=== PATIENT | female | born 1955 | race Caucasian/White ===

== ENCOUNTER 2020-04-17 11:06 | Inpatient (IN) | payer OTHER ==
[2020-04-17] MEDS ORDERED: Ketorolac 30 MG/ML SDV IVPUSH PRN (16:19)
[2020-04-17] MEDS ORDERED: Ondansetron 4 MG/2 ML SDV IV PRN (16:19)
[2020-04-17] MEDS ORDERED: Sodium Chloride 0.9% 50 ML IV SCH (16:30)
[2020-04-17] MEDS ORDERED: Diatrizoate Meglumine/Diatrizoate Sodium 37% 30 ML Bottle PO ONE (16:30)
[2020-04-17] MEDS ORDERED: Iopamidol 755 Mg/ML 100 ML Bottle IV ONE (16:30)
[2020-04-17] MEDS: Sodium Chloride 0.9% 1,000 ML IV SCH (17:02)
[2020-04-17] MEDS ORDERED: Promethazine 25 MG/ML SDV IM ONE (17:05)
--- NOTE | 2020-04-17 18:05 | CT ---
[id number] CT/CT Abdomen Pelvis W IV EXAM: CT Abdomen Pelvis W IV CLINICAL DATA: ABDOMINAL PAIN. COMPARISON STUDY: None. FINDINGS: Dependent atelectasis at the lung bases bilaterally. Moderate hiatal hernia. A few subcentimeter hypodensities scattered throughout the liver are nonspecific but likely represent cysts. The gallbladder is mildly distended. The spleen, pancreas, adrenal glands are unremarkable. Right renal cyst. The kidneys are otherwise unremarkable. No hydronephrosis or hydroureter. There are multiple fluid distended loops of small bowel with relative to the decompression distally. There is a transition point within the right lower quadrant. There is a small amount of free fluid within the abdomen and pelvis. No free air. No fluid collection. Colonic diverticulosis. No lymphadenopathy or pneumoperitoneum. Scattered changes of spondylosis the spine. No fracture or osseous lesion. IMPRESSION: 1. Multiple fluid distended loops of small bowel with transition point in the right hemipelvis consistent with small bowel obstruction. [id number] amount of free fluid within the abdomen and pelvis. Mariano Berman DO 04/17/20 0518 Thank you for allowing us to participate in the care of your patient.
[2020-04-17] MEDS: Morphine 2 MG/ML SYRINGE IVPUSH PRN ×3 (18:22→22:50)
[2020-04-17] MEDS ORDERED: CETIRIZINE HCL 10 MG PO PRN (18:34)
[2020-04-17] MEDS: LORazepam 2 MG/ML SDV IVPUSH PRN (19:46)
[2020-04-17] MEDS: Sodium Chloride 0.9% 10 ML Syringe FLUSH PRN ×2 (19:49→22:52)
[2020-04-17] MEDS ORDERED: CLONAZEPAM 1 MG PO SCH (21:00)
[2020-04-18] MEDS: Sodium Chloride 0.9% 1,000 ML IV SCH ×3 (01:38→18:34)
[2020-04-18] MEDS: Morphine 2 MG/ML SYRINGE IVPUSH PRN ×6 (04:33→22:16)
[2020-04-18] MEDS: Sodium Chloride 0.9% 10 ML Syringe FLUSH PRN ×2 (04:35→13:58)
[2020-04-18 07:36] LABS: ANION GAP 12.7 mmol/L (5-15)
[2020-04-18] MEDS ORDERED: HCTZ PO SCH (09:00)
[2020-04-18] MEDS ORDERED: Non-Formulary Medication 1 Each (Bupropion Hcl [Wellbutrin Xl] 300 MG) PO SCH (09:00)
[2020-04-18] MEDS ORDERED: TRIAMTERENE PO SCH (09:00)
[2020-04-18] MEDS ORDERED: Non-Formulary Medication 1 Each (Paroxetine Hcl [Paxil] 40 MG) PO SCH (09:00)
[2020-04-18] MEDS ORDERED: Non-Formulary Medication 1 Each (Omeprazole [Omeprazole] 20 MG) PO SCH (09:00)
[2020-04-18] MEDS ORDERED: ENALAPRIL MALEATE 20 MG PO SCH (09:00)
--- NOTE | 2020-04-18 10:37 | PCM.PN ---
- General Info Date of Service: 04/18/20 Subjective Update: Pain is improving. Most of her pain is in her back that is chronic in nature. The abdominal pain less than on admission. Denies nausea/voming. Has not yet been passing flatus and has not had a bowel movement. Functional Status: Reports: Pain Controlled, Urinating - Review of Systems General: Denies: Fever, Weakness, Chills HEENT: Reports: Sore Throat (from NGT). Denies: Headaches, Visual Changes Pulmonary: Denies: Shortness of Breath, Cough, Wheezing Cardiovascular: Denies: Chest Pain, Palpitations, Edema Gastrointestinal: Reports: Abdominal Pain (improved, generalized), Other (has not yet had bowel movement). Denies: Flatus, Nausea, Vomiting Genitourinary: Denies: Dysuria, Frequency, Urgency, Hematuria Musculoskeletal: Reports: Back Pain Skin: Denies: Rash Neurological: Denies: Confusion, Headache, Weakness Psychiatric: Reports: Anxiety - Patient Data Vitals - Most Recent: Last Vital Signs Temp 37.1 C 04/18/20 06:38 Pulse 102 H 04/18/20 06:38 Resp 20 04/18/20 06:38 BP 143/82 H 04/18/20 06:38 Pulse Ox 96 04/18/20 06:38 Weight - Most Recent: 50.984 kg I&O - Last 24 Hours: Intake & Output 04/17/20 04/18/20 04/18/20 22:59 06:59 14:59 Intake Total 1555 Output Total 125 Balance 1430 Lab Results Last 24 Hours: Laboratory Results - last 24 hr 04/17/20 04/17/20 04/17/20 Range/Units 16:20 17:10 17:10 WBC (5.00-10.00) 10^3/uL RBC (3.80-5.50) 10^6/uL Hgb (12.0-16.0) g/dL Hct (37.0-47.0) % MCV (82.0-92.0) fL MCH (27.0-31.0) pg MCHC (32.0-36.0) g/dL RDW (11.5-14.5) % Plt Count (150-400) 10^3/uL MPV (7.4-10.4) fL Immature Gran % (Auto) (0.0-5.0) % Neut % (Auto) (50.0-70.0) % Lymph % (Auto) (20.0-40.0) % [place] % (Auto) (2.0-8.0) % Eos % (Auto) (1.0-3.0) % Baso % (Auto) (0.0-1.0) % Neut # (Auto) (2.50-7.00) 10^3/uL Lymph # (Auto) (1.00-4.00) 10^3/uL [place] # (Auto) (0.10-0.80) 10^3/uL Eos # (Auto) (0.10-0.30) 10^3/uL Baso # (Auto) (0.00-0.10) 10^3/uL Immature Gran # (Auto) (0.00-0.50) 10^3/uL Sodium (136-145) mmol/L Potassium (3.3-5.3) mmol/L Chloride (98-115) mmol/L Carbon Dioxide (21.0-32.0) mmol/L Anion Gap (5-15) mmol/L BUN (6-25) mg/dL Creatinine (0.51-1.17) mg/dL Est Cr Clr Drug Dosing mL/min Estimated GFR (MDRD) mL/min Glucose (75 - 99) mg/dL POC Glucose 115 H (74-106) mg/dl Lactic Acid 1.0 (0.4-2.0) mmol/L Calcium (8.7-10.3) mg/dL C-Reactive Protein 1.8 H (0.0-0.9) mg/dL Specimen Type Urine Color (YELLOW) Urine Appearance (CLEAR) Urine pH (5.0-9.0) Ur Specific [place] (1.005-1.030) Urine Protein (NEGATIVE) mg/dL Urine Glucose (UA) (NEGATIVE) mg/dL Urine Ketones (NEGATIVE) mg/dL Urine Occult Blood (NEGATIVE) Urine Nitrite (NEGATIVE) Urine Bilirubin (NEGATIVE) Urine Urobilinogen (0.2-1.0) E.U./dL Ur Leukocyte Esterase (NEGATIVE) U Hyaline Cast (Auto) Urine RBC (0-5) /HPF Urine WBC (0-5) /HPF Ur Epithelial Cells /LPF Other Crystals /HPF Urine Bacteria (NONE TO FEW) /HPF Urine Mucus (NEGATIVE) /LPF 04/17/20 04/18/20 04/18/20 Range/Units 17:40 07:07 07:07 WBC 4.43 L (5.00-10.00) 10^3/uL RBC 3.75 L (3.80-5.50) 10^6/uL Hgb 11.8 L (12.0-16.0) g/dL Hct 35.5 L (37.0-47.0) % MCV 94.7 H (82.0-92.0) fL MCH 31.5 H (27.0-31.0) pg MCHC 33.2 (32.0-36.0) g/dL RDW 13.0 (11.5-14.5) % Plt Count 251 (150-400) 10^3/uL MPV 8.5 (7.4-10.4) fL Immature Gran % (Auto) 0.0 (0.0-5.0) % Neut % (Auto) 74.6 H (50.0-70.0) % Lymph % (Auto) 14.2 L (20.0-40.0) % [place] % (Auto) 10.2 H (2.0-8.0) % Eos % (Auto) 0.5 L (1.0-3.0) % Baso % (Auto) 0.5 (0.0-1.0) % Neut # (Auto) 3.31 (2.50-7.00) 10^3/uL Lymph # (Auto) 0.63 L (1.00-4.00) 10^3/uL [place] # (Auto) 0.45 (0.10-0.80) 10^3/uL Eos # (Auto) 0.02 L (0.10-0.30) 10^3/uL Baso # (Auto) 0.02 (0.00-0.10) 10^3/uL Immature Gran # (Auto) 0.00 (0.00-0.50) 10^3/uL Sodium 138 (136-145) mmol/L Potassium 3.5 (3.3-5.3) mmol/L Chloride 101 (98-115) mmol/L Carbon Dioxide 27.8 (21.0-32.0) mmol/L Anion Gap 12.7 (5-15) mmol/L BUN 29 H (6-25) mg/dL Creatinine 1.03 (0.51-1.17) mg/dL Est Cr Clr Drug Dosing 40.16 mL/min Estimated GFR (MDRD) 54 mL/min Glucose 102 H (75 - 99) mg/dL POC Glucose (74-106) mg/dl Lactic Acid (0.4-2.0) mmol/L Calcium 7.9 L (8.7-10.3) mg/dL C-Reactive Protein (0.0-0.9) mg/dL Specimen Type Urin[place]ad Urine Color Yellow (YELLOW) Urine Appearance Slightly cloudy H (CLEAR) Urine pH 5.5 (5.0-9.0) Ur Specific [place] >= 1.030 (1.005-1.030) Urine Protein 100 H (NEGATIVE) mg/dL Urine Glucose (UA) Negative (NEGATIVE) mg/dL Urine Ketones 15 H (NEGATIVE) mg/dL Urine Occult Blood Negative (NEGATIVE) Urine Nitrite Negative (NEGATIVE) Urine Bilirubin Moderate H (NEGATIVE) Urine Urobilinogen 0.2 (0.2-1.0) E.U./dL Ur Leukocyte Esterase Trace H (NEGATIVE) U Hyaline Cast (Auto) Moderate Urine RBC 0-5 (0-5) /HPF Urine WBC 30-40 H (0-5) /HPF Ur Epithelial Cells Moderate H /LPF Other Crystals Moderate /HPF Urine Bacteria Moderate H (NONE TO FEW) /HPF Urine Mucus Moderate H (NEGATIVE) /LPF Med Orders - Current: Current Medications Sodium Chloride (Normal Saline) 1,000 mls @ 125 mls/hr IV ASDIRECTED [facility] Last Admin: 04/18/20 09:50 Dose: 125 mls/hr Documented by: Lorazepam (Ativan) 0.5 mg IVPUSH Q4H PRN PRN Reason: Anxiety Last Admin: 04/17/20 19:46 Dose: 0.5 mg Documented by: Morphine Sulfate (Morphine) 2 mg IVPUSH Q2H PRN PRN Reason: Pain (moderate 4-6) Last Admin: 04/18/20 07:19 Dose: 2 mg Documented by: Ondansetron HCl (Zofran) 4 mg IV Q4H PRN PRN Reason: Nausea/Vomiting Last Admin: 04/17/20 18:15 Dose: 4 mg Documented by: Sodium Chloride (Saline Flush) 10 ml FLUSH Q8HR PRN PRN Reason: keep vein open Last Admin: 04/18/20 04:35 Dose: 10 ml Documented by: Discontinued Medications Diatrizoate Meglum/Diatrizoate Sod (Gastrografin 37%) 30 ml PO ONETIME ONE Stop: 04/17/20 16:31 Last Admin: 04/17/20 17:47 Dose: 30 ml Documented by: Sodium Chloride (Normal Saline) 50 mls @ 200 mls/min IV ASDIRECTED [facility] Last Admin: 04/17/20 17:47 Dose: 200 mls/min Documented by: Iopamidol (Isovue-370 (76%)) 100 ml IV ONETIME ONE Stop: 04/17/20 16:31 Last Admin: 04/17/20 17:47 Dose: 75 ml Documented by: Ketorolac Tromethamine (Toradol) 30 mg IVPUSH Q8H PRN PRN Reason: Pain (moderate 4-6) Non-Formulary Medication (Bupropion Hcl [Wellbutrin Xl]) 300 mg PO DAILY JACQU[facility]INE Non-Formulary Medication (Cetirizine Hcl [Cetirizine Hcl]) 10 mg PO DAILY PRN PRN Reason: Allergies Non-Formulary Medication (Clonazepam [Clonazepam]) 1 mg PO TID JACQUELINE Non-Formulary Medication (Enalapril Maleate [Vasotec]) 20 mg PO DAILY JACQUELINE Non-Formulary Medication (Hctz/Triamterene [Dyazide 25-37.5 Mg]) 1 cap PO DAILY JACQUELINE Non-Formulary Medication (Omeprazole [Omeprazole]) 20 mg PO DAILY JACQUELINE Non-Formulary Medication (Paroxetine Hcl [Paxil]) 40 mg PO DAILY [facility]AC[facility]INE Promethazine HCl (Phenergan) 25 mg IM Q6H ONE Stop: 04/17/20 17:06 Last Admin: 04/17/20 17:10 Dose: 25 mg Documented by: - Exam Physical Findings Comments:: GENERAL: Well-appearing adult in no acute distress with NGT in place. 200 total output noted in canister HEENT: Normocephalic, atraumatic. Conjunctiva clear. Nares patent without discharge. Mucous membranes moist, posterior pharynx unremarkable. NECK: Supple, no masses. CV: Regular rate and rhythm, no murmurs, rubs, or gallops. 2+ radial pulses. PULMONARY: Normal effort, clear to auscultation bilaterally, no wheezes, rales, or rhonchi. ABDOMEN: Positive bowel sounds, soft, mild tenderness generalized on palpation, nondistended. EXTREMITIES: No edema, cyanosis, or clubbing. MUSCULOSKELETAL: Moves all extremities well. NEUROLOGICAL: No obvious deficits. DERMATOLOGIC: No rashes or suspicious lesions in exposed areas. PSYCHIATRIC: Alert, interactive, appropriate affect. Sepsis Event Note - Evaluation Sepsis Screening Result: No Definite Risk - Focused Exam Vital Signs: Vital Signs Temp Pulse Resp BP Pulse Ox 04/18/20 06:38 37.1 C 102 H 20 143/82 H 96 04/18/20 03:00 36.2 C 114 H 20 139/82 95 04/17/20 22:52 36.3 C 115 H 20 152/85 H 95 Date Exam was Performed: 04/18/20 Time Exam was Performed: 11:12 - Problem List Review Problem List Initiated/Reviewed/Updated: Yes - My Orders Last 24 Hours: My Active Orders 04/17/20 15:50 Patient Status [ADT] Routine 04/17/20 16:19 Oxygen Therapy [RC] .PRN Up With Assistance [RC] VTE/DVT Education [RC] DAILY Ondansetron [Zofran] 4 mg IV Q4H PRN Sodium Chloride 0.9% [Saline Flush] 10 ml FLUSH Q8HR PRN Peripheral IV Insertion Adult [OM.PC] Routine Resuscitation Status Routine 04/17/20 16:23 Intake and Output [RC] 07,19 04/17/20 16:25 Peripheral IV Care [RC] 09,04/17/20 16:30 Sodium Chloride 0.9% [Normal Saline] 1,000 ml IV ASDIRECTED 04/17/20 16:54 Morphine 2 mg IVPUSH Q2H PRN 04/17/20 Dinner Nothing per Oral Now Diet [DIET] 04/19/20 05:11 BMP [BASIC METABOLIC PANEL,BMP] [CHEM] AM CBC WITH AUTO DIFF [HEME] AM - Assessment Assessment:: HPI summary: 64 year old female presented to [facility] with abdominal pain/nausea/vomting for two days prior to presentation. She was brushing teeth and stomach started hurting. She felt like huge rock going through. She felt like it was swollen and gassy and she took a gas x without relief. She is nauseated, vomiting and has abdominal pain and swelling. She took aspirin and pepto bismol. She was able to keep water down for a short time. She has not been able to eat or drink anything it is coming back up. Hx constipation. S ometimes diarrhea and this is chronic. Last BM two days prior to presentation and it was small and soft/formed. No blood or melana. Vomit is watery with white in it. She was admitted to [facility] observation status with acute abdominal pain, leukocytosis, decreased kidney function, dehydration, nausea/vomiting. Prehospital findings: -Labs: WBC 11.3, Neut 9.9, lymphocytes 0.7, lipase unremarkable, glucose 138, BUN 25, creatinine 1.26, GFR 43, electrolytes stable other than mildly decreased chloride 94, calcium 9.8 -NS 1000mL bolus given with ondansetron 4mg and ketorolac 30mg with some improvement in symptoms Hospital course: 04/17/2020: CT scan completed showing "multiple fluid distended loops of small bowel with transition point in the right hemipelvis consistent with small bowel obstruction. Small to moderate amount of free fluid within the abdomen and pelvis". NPO status. NGT was placed. NS at 125mL/hr. Ondansetron PRN, Morphine PRN. 04/18/2020: No overnight concerns. Abdominal pain is improved. 200 seen in suction canister at bedside. Denies N/V. Has not been passing flatus and has not had bowel movement. Continues to have mild tachycardia in the 100-110s. Afebrile. BP mildly elevated at 143/82. Voiding. WBC 4.43, RBC 3.75, Hgb 11.8, HCT 35.5, Neut 3.31, lymph 0.63, electrolytes stable other than asymptomatic hypocalcemia 7.9; CRP 1.8, lactic 1. Urine sample was collected and appears to be contaminated specimen. Patient denies dysuria. Hospitalization problems and plan: # Small bowel obstruction - NPO - NGT to low intermittent suction - NS 125mL/hr - Ondansetron IV PRN nausea/vomiting - MS IV PRN pain - Monitor BS, passing gas or BM - Monitor I/O - CBC, BMP on 04/19/2020 - Change to inpatient status # Leukocytosis, resolved - repeat CBC on 04/19/2020 # Decreased kidney function, improved - repeat BMP on 04/19/2020 # Dehydration, improved - continue NS 125/hr # GERD - Protonix 40mg IV Chronic, stable conditions: # HTN: holding triamterene/HCTZ and enalapril for now # Anxiety: receives clonazepam scheduled three times daily; will continue PRN dosing in hospital; holding paroxetine and bupropion for now # Allergic rhinitis: hold cetirizine for now # Osteoarthritis: hold hydrocodone for now Hospitalization details: # FEN: NS 125mL/hour; electrolytes stable; NPO # PPX: Risk score 2. No clinical risk factors, will reassess on regular basis # Code status: Full code; NO blood or blood products # Emergency contact: , Atul updated at bedside # Disposition: anticipate discharge to home after two to three midnights; change to inpatient status
[2020-04-18] MEDS ORDERED: Pantoprazole 40 MG in Sodium Chloride 0.9% 100 ML IV ONE (11:05)
[2020-04-18] MEDS: LORazepam 2 MG/ML SDV IVPUSH PRN ×2 (13:56→23:20)
[2020-04-19] MEDS: Sodium Chloride 0.9% 1,000 ML IV SCH ×3 (02:30→15:53)
[2020-04-19] MEDS: Morphine 2 MG/ML SYRINGE IVPUSH PRN ×2 (05:09→16:55)
[2020-04-19 08:02] LABS: ANION GAP 17.5 mmol/L (5-15); CHLORIDE,CL 101 mmol/L (98-115); SODIUM,NA 138 mmol/L (136-145)
[2020-04-19] MEDS: LORazepam 2 MG/ML SDV IVPUSH PRN ×3 (08:45→16:55)
[2020-04-19] MEDS: Sodium Chloride 0.9% 10 ML Syringe FLUSH PRN (08:50)
[2020-04-19] MEDS ORDERED: Pantoprazole 40 MG Vial IVPUSH SCH (10:00)
[2020-04-19] MEDS ORDERED: Sodium Chloride 0.9% 10 ML SDV IV STA (10:31)
--- NOTE | 2020-04-19 10:57 | PCM.DCSUM1 ---
Discharge Summary - Hospital Course Free Text/Narrative:: Date of admission: 04/17/20 Date of discharge: 04/19/20 Admission diagnoses: # Small bowel obstruction # Leukocytosis with neutrophilia # Increased creatinine # HTN # GERD # Anxiety # Allergic rhinitis Discharge diagnoses: # Small bowel obstruction # Leukocytosis with neutrophilia, resolved # Increased creatinine, resolved # HTN # GERD # Anxiety # Allergic rhinitis Consultations: [facility] hospitalist and general surgery Procedures: None Imagin04/17/20 CT abdomen/pelvis with contrast: Multiple fluid distended loops of small bowel with transition point in the R hemipelvis consistent with SBO. Hospital course: 64yoF with history notable for 4 prior abdominal surgeries (C/S x3 and hysterectomy), chronic constipation, HTN, and anxiety who presented to [facility] on date of admission with abdominal pain, nausea, and vomting for two days prior to presentation. She took Gas-X, aspirin, and PeptoBismol without improvement. She was able to keep water down for a short time, but later wasn't able to keep any fluids down. Last BM was 04/15/20 without blood or melena. In clinic labs were notable for WBC 11.3 with neutrophils 9.9, creatinine 1.26, and otherwise normal CBC/CMP/lipase. COVID testing negative.She was given NS 1L bolus and ondansetron 4mg with some improvement in symptoms, but due to the need for additional work-up and monitoring, she was admitted to [facility] in observation status. She was later changed to inpatient status. CT obtained upon admission showing multiple fluid distended loops of small bowel with transition point in the R hemipelvis consistent with SBO. NGT was placed, IVF started, and morphine/ondansetron ordered for pain/nausea. She had improved pain and resolved nausea on 04/18/20 with ongoing reassuring VS and no laboratory evidence of infection or electrolyte abnormality. IVF were increased due to mild tachycardia, which was also attributed to significant anxiety for which her typical oral medications have been on hold. On the day of discharge she continued to have reassuring hemodynamic status and laboratory data with presence of some bowel sounds, but had yet to pass flatus or stool. [facility] contacted for surgery consultation to consider transfer due to local lack of small bowel follow-through and surgery capabilities and Dr. Tsang accepted transfer. Discharge and follow-up recommendations: - Discharge to [facility] via ALS ambulance - Discharge Data Discharge Date: 04/19/20 Discharge Disposition: DC/Tfer to Acute Hospital 02 Condition: Good - Referral to Home Health Primary Care Physician: PCP None - Patient Instructions Diet: NPO Activity: As Tolerated - Discharge Plan *PRESCRIPTION DRUG MONITORING PROGRAM REVIEWED*: Not Applicable *COPY OF PRESCRIPTION DRUG MONITORING REPORT IN PATIENT [place]: Not Applicable Home Medications: Home Meds Cetirizine HCl 10 mg PO DAILY PRN 04/17/20 [History] Enalapril Maleate [Vasotec] 20 mg PO DAILY 04/17/20 [History] HCTZ/Triamterene [Dyazide 25-37.5 MG] 1 cap PO DAILY 04/17/20 [History] Hydrocodone/Acetaminophen [[place] 7.5-325 Tablet] 1 tab PO Q6HR PRN 04/17/20 [History] Omeprazole 20 mg PO DAILY 04/17/20 [History] PARoxetine HCl [Paxil] 40 mg PO DAILY 04/17/20 [History] buPROPion HCL [Wellbutrin Xl] 300 mg PO DAILY 04/17/20 [History] clonazePAM [Clonazepam] 1 mg PO TID 04/17/20 [History] - Discharge Summary/Plan Comment DC Time >30 min.: Yes - General Info Date of Service: 04/19/20 Subjective Update: Abdominal pain is with ongoing improvement since admission, but with mild persistence scattered throughout. Denies persistent nausea. Has not yet been passing flatus and has not had a bowel movement. - Patient Data Vitals - Most Recent: Last Vital Signs Temp 36.4 C 04/19/20 06:08 Pulse 119 H 04/19/20 06:08 Resp 20 04/19/20 06:08 BP 155/90 H 04/19/20 06:08 Pulse Ox 94 L 04/19/20 06:08 Weight - Most Recent: 50.984 kg I&O - Last 24 hours: Intake & Output 04/18/20 04/19/20 04/19/20 22:59 06:59 14:59 Intake Total 1426 1532 Output Total 850 1025 Balance 576 507 Lab Results - Last 24 hrs: Laboratory Results - last 24 hr 08/05/20 08/05/20 Range/Units 07:12 07:12 WBC 3.41 L (5.00-10.00) 10^3/uL RBC 3.75 L (3.80-5.50) 10^6/uL Hgb 11.8 L (12.0-16.0) g/dL Hct 35.9 L (37.0-47.0) % MCV 95.7 H (82.0-92.0) fL MCH 31.5 H (27.0-31.0) pg MCHC 32.9 (32.0-36.0) g/dL RDW 12.5 (11.5-14.5) % Plt Count 246 (150-400) 10^3/uL MPV 8.7 (7.4-10.4) fL Immature Gran % (Auto) 0.0 (0.0-5.0) % Neut % (Auto) 67.8 (50.0-70.0) % Lymph % (Auto) 15.2 L (20.0-40.0) % [place] % (Auto) 15.5 H (2.0-8.0) % Eos % (Auto) 0.6 L (1.0-3.0) % Baso % (Auto) 0.9 (0.0-1.0) % Neut # (Auto) 2.31 L (2.50-7.00) 10^3/uL Lymph # (Auto) 0.52 L (1.00-4.00) 10^3/uL [place] # (Auto) 0.53 (0.10-0.80) 10^3/uL Eos # (Auto) 0.02 L (0.10-0.30) 10^3/uL Baso # (Auto) 0.03 (0.00-0.10) 10^3/uL Immature Gran # (Auto) 0.00 (0.00-0.50) 10^3/uL Sodium 138 (136-145) mmol/L Potassium 3.4 (3.3-5.3) mmol/L Chloride 101 (98-115) mmol/L Carbon Dioxide 22.9 (21.0-32.0) mmol/L Anion Gap 17.5 H (5-15) mmol/L BUN 21 (6-25) mg/dL Creatinine 0.68 (0.51-1.17) mg/dL Est Cr Clr Drug Dosing 60.82 mL/min Estimated GFR (MDRD) > 60 mL/min Glucose 84 (75 - 99) mg/dL Calcium 7.9 L (8.7-10.3) mg/dL Med Orders - Current: Current Medications Sodium Chloride (Normal Saline) 1,000 mls @ 150 mls/hr IV ASDIRECTED [facility] Lorazepam (Ativan) 0.5 mg IVPUSH Q4H PRN PRN Reason: Anxiety Last Admin: 04/19/20 08:45 Dose: 0.5 mg Documented by: Morphine Sulfate (Morphine) 2 mg IVPUSH Q2H PRN PRN Reason: Pain (moderate 4-6) Last Admin: 04/19/20 05:09 Dose: 2 mg Documented by: Ondansetron HCl (Zofran) 4 mg IV Q4H PRN PRN Reason: Nausea/Vomiting Last Admin: 04/17/20 18:15 Dose: 4 mg Documented by: Pantoprazole Sodium (Protonix Iv) 40 mg IVPUSH DAILY [facility] Last Admin: 04/19/20 10:33 Dose: 40 mg Documented by: Sodium Chloride (Saline Flush) 10 ml FLUSH Q8HR PRN PRN Reason: keep vein open Last Admin: 04/19/20 08:50 Dose: 10 ml Documented by: Discontinued Medications Diatrizoate Meglum/Diatrizoate Sod (Gastrografin 37%) 30 ml PO ONETIME ONE Stop: 04/17/20 16:31 Last Admin: 04/17/20 17:47 Dose: 30 ml Documented by: Sodium Chloride (Normal Saline) 1,000 mls @ 125 mls/hr IV ASDIRECTED [facility] Last Admin: 04/19/20 02:30 Dose: 125 mls/hr Documented by: Sodium Chloride (Normal Saline) 50 mls @ 200 mls/min IV ASDIRECTED [facility] Last Admin: 04/17/20 17:47 Dose: 200 mls/min Documented by: Pantoprazole Sodium 40 mg/ (Sodium Chloride) 100 mls @ 200 mls/hr IV ONETIME ONE Stop: 04/18/20 11:34 Last Admin: 04/18/20 11:39 Dose: 200 mls/hr Documented by: Iopamidol (Isovue-370 (76%)) 100 ml IV ONETIME ONE Stop: 04/17/20 16:31 Last Admin: 04/17/20 17:47 Dose: 75 ml Documented by: Ketorolac Tromethamine (Toradol) 30 mg IVPUSH Q8H PRN PRN Reason: Pain (moderate 4-6) Non-Formulary Medication (Bupropion Hcl [Wellbutrin Xl]) 300 mg PO DAILY [facility]INE Non-Formulary Medication (Cetirizine Hcl [Cetirizine Hcl]) 10 mg PO DAILY PRN PRN Reason: Allergies Non-Formulary Medication (Clonazepam [Clonazepam]) 1 mg PO TID JACQUELINE Non-Formulary Medication (Enalapril Maleate [Vasotec]) 20 mg PO DAILY JACQUELINE Non-Formulary Medication (Hctz/Triamterene [Dyazide 25-37.5 Mg]) 1 cap PO DAILY JACQUELINE Non-Formulary Medication (Omeprazole [Omeprazole]) 20 mg PO DAILY JACQUELINE Non-Formulary Medication (Paroxetine Hcl [Paxil]) 40 mg PO DAILY [facility] Promethazine HCl (Phenergan) 25 mg IM Q6H ONE Stop: 04/17/20 17:06 Last Admin: 04/17/20 17:10 Dose: 25 mg Documented by: - Exam Physical Findings Comments:: GENERAL: Well-appearing adult white female lying in hospital bed in no acute distress. at bedside. HEENT: Normocephalic, atraumatic. Conjunctiva clear. NGT in place. Mucous membranes mildly dry, posterior pharynx unremarkable. NECK: Supple, no masses. CV: Borderline tachycardia, regular rhythm, no murmurs, rubs, or gallops. 2+ radial pulses. PULMONARY: Normal effort, clear to auscultation bilaterally, no wheezes, rales, or rhonchi. ABDOMEN: Hypoactive bowel sounds, soft, tenderness to palpation diffusely, no guarding or rigidity. EXTREMITIES: No edema, cyanosis, or clubbing. MUSCULOSKELETAL: Moves all extremities well. NEUROLOGICAL: No obvious deficits. DERMATOLOGIC: No rashes or suspicious lesions in exposed areas. PSYCHIATRIC: Alert, interactive, mildly anxious affect.
== END 2020-04-19 17:15 | DRG 390 ==
LOC: KA.MS 11:06 → OBSVTOIN 04-18 11:06
PROVIDERS: ADMIT Nurse Practitioner Family; ATTEND Nurse Practitioner Family
DX: K56.609 Unspecified intestinal obstruction, unspecified as to partial versus complete obstruction (principal); E86.0 Dehydration; D72.0 Genetic anomalies of leukocytes; K21.9 Gastro-esophageal reflux disease without esophagitis; I10 Essential (primary) hypertension; J30.9 Allergic rhinitis, unspecified; K59.09 Other constipation; R79.89 Other specified abnormal findings of blood chemistry; R00.0 Tachycardia, unspecified; M19.90 Unspecified osteoarthritis, unspecified site; F41.1 Generalized anxiety disorder; F32.9 Major depressive disorder, single episode, unspecified; Z90.710 Acquired absence of both cervix and uterus
CPT/HCPCS: 36415; 74177; 80048; 81001; 82962; 83605; 85025; 86140; 96361; 96372; 96374; 96375; 96376; C9113; G0378; J2060; J2270; J2405; J2550; J7030; J7050; Q9963; Q9967

== ENCOUNTER 2024-11-09 09:26 | Day surgery (SDC) | payer MEDICARE, OTHER ==
[2024-11-09] MEDS ORDERED: Sodium Chloride 0.9% 10 ML Syringe FLUSH PRN (09:30)
[2024-11-09] MEDS: Lactated Ringers 1,000 ML IV SCH (09:50)
[2024-11-09] MEDS ORDERED: Midazolam 1 MG/ML 2 ML SDV ONE (10:05)
[2024-11-09] MEDS ORDERED: Propofol 200 MG/20 ML SDV ONE (10:05)
== END 2024-11-09 12:08 | disposition home or self-care (01) ==
LOC: KA.SDS 09:26
PROVIDERS: ATTEND Surgery
DX: Z12.11 Encounter for screening for malignant neoplasm of colon (principal); K57.30 Diverticulosis of large intestine without perforation or abscess without bleeding; I10 Essential (primary) hypertension; D64.9 Anemia, unspecified; Z79.899 Other long term (current) drug therapy
CPT/HCPCS: 00812; J2250; J2704; J7120

== ENCOUNTER 2025-06-17 06:35 | Emergency (ER) | payer MEDICARE ==
[2025-06-17] MEDS ORDERED: Sodium Chloride 0.9% 10 ML Syringe FLUSH PRN (06:50)
[2025-06-17] MEDS: Ondansetron 4 MG/2 ML SDV IVPUSH ONE ×2 (07:04→07:56)
[2025-06-17 07:07] LABS: BASOPHILS ABSOLUTE AUTO 0.02 10^3/uL (0.00-0.10); BASOPHILS PERCENT AUTO 0.2 % (0.0-1.0); EOSINOPHILS ABSOLUTE AUTO 0.00 10^3/uL (0.10-0.30); EOSINOPHILS PERCENT AUTO 0.0 % (1.0-3.0); IMMATURE GRAN ABSOLUTE AUTO 0.02 10^3/uL (0.00-0.04); IMMATURE GRAN PERCENT AUTO 0.2 % (0.0-0.4); LYMPHOCYTES ABSOLUTE AUTO 0.61 10^3/uL (1.00-4.00); LYMPHOCYTES PERCENT AUTO 6.6 % (20.0-40.0); MEAN PLATELET VOLUME 8.2 fL (7.4-10.4); MONOCYTES ABSOLUTE AUTO 0.21 10^3/uL (0.10-0.80); MONOCYTES PERCENT AUTO 2.3 % (2.0-8.0); NEUTROPHILS ABSOLUTE AUTO 8.35 10^3/uL (2.50-7.00); NEUTROPHILS PERCENT AUTO 90.7 % (50.0-70.0); PLATELET COUNT,PLT 324 10^3/uL (150-400); RED BLOOD CELL COUNT 4.51 10^6/uL (3.80-5.50); RED CELL DISTRIBUTION WIDTH 13.2 % (11.5-14.5); WHITE BLOOD CELL COUNT,WBC 9.21 10^3/uL (5.00-10.00)
[2025-06-17 07:19] LABS: ALANINE AMINOTRANSFERASE,ALT 33 U/L (14-63); ASPARTATE AMNIOTRANSFERASE,AST 33 U/L (15-37); BILIRUBIN TOTAL 0.4 mg/dL (0.2-1.0); BLOOD UREA NITROGEN,BUN 15 mg/dL (7-18); CARBON DIOXIDE,CO2 31.9 mmol/L (21.0-32.0); CREATININE 0.97 mg/dL (0.51-1.17); GLUCOSE RANDOM 144 mg/dL (70-140); POTASSIUM,K 3.4 mmol/L (3.5-5.1); PROTEIN TOTAL,TP 8.0 g/dL (6.4-8.2); SODIUM,NA 130 mmol/L (136-145)
[2025-06-17] MEDS: Ketorolac 30 MG/ML SDV IVPUSH ONE (07:36)
[2025-06-17 07:37] LABS: CHLORIDE,CL 87 mmol/L (98-107); ESTIMATED GFR 64 mL/min (>=60)
[2025-06-17 08:05] LABS: APPEARANCE,URINE CLEAR (CLEAR); GLUCOSE,URINE NEGATIVE (NEGATIVE); OCCULT BLOOD,URINE NEGATIVE (NEGATIVE)
[2025-06-17 08:16] LABS: EPITHELIAL CELLS,URINE RARE /LPF
[2025-06-17] MEDS: Iopamidol 755 Mg/ML 100 ML Bottle IV ONE (08:17)
[2025-06-17] MEDS ORDERED: Benzocaine 20% Topical Spray UD MUCMEM ONE (08:53)
[2025-06-17] MEDS: LORazepam 2 MG/ML SDV IVPUSH ONE (09:40)
== END 2025-06-17 09:55 ==
LOC: KA.ED 06:35
DX: K56.609 Unspecified intestinal obstruction, unspecified as to partial versus complete obstruction (principal); I10 Essential (primary) hypertension; K21.9 Gastro-esophageal reflux disease without esophagitis; Z79.899 Other long term (current) drug therapy; Z90.710 Acquired absence of both cervix and uterus
CPT/HCPCS: 36415; 43752; 74018; 74177; 80053; 81001; 82272; 83605; 83690; 85025; 96361; 96374; 96375; 96376; 99284; 99285-25; J1171; J1885; J2060; J2405; J7030; Q9967